=== PATIENT | male | born 1995 | race Caucasian/White ===

== ENCOUNTER 2023-10-17 10:18 | Day surgery (SDC) | payer OTHER ==
[~2023-10-17] VITALS: Ht 172.7 cm; Wt 54.4 kg
[2023-10-17] MEDS ORDERED: fentaNYL citrate 0.05 MG/ML VIAL ONE (12:32)
[2023-10-17] MEDS: fentaNYL citrate 0.05 MG/ML VIAL IVP ONE (12:52)
[2023-10-17] MEDS: LIDOCAINE 2% 100 MG/5 ML UJET TP ONE (12:57)
== END 2023-10-17 14:00 | disposition home or self-care (01) ==
LOC: MDS 10:18 → MMU 10:20 → MDS 14:00
PROVIDERS: ATTEND Internal Medicine Gastroenterology
DX: K62.5 Hemorrhage of anus and rectum (principal); F17.210 Nicotine dependence, cigarettes, uncomplicated; F12.90 Cannabis use, unspecified, uncomplicated; Z79.899 Other long term (current) drug therapy; Z98.890 Other specified postprocedural states
CPT/HCPCS: 45378; J3010